=== PATIENT | male | born 1975 | race Caucasian/White ===

== ENCOUNTER 2016-05-10 20:49 | Emergency (ER) | payer OTHER ==
[~2016-05-10 20:49] MED LIST: ADVIL PM CAPLE1 EACH; ALLEGRA PO; APRESOLINE; DOXYCYCLINE PO; ENTEX LA T1 TAB.SR . PO; KEFLEX PO; LEXAPRO PO; OTC COLD MED; PHENERGAN PO; PHENERGAN25 MG PO; ROBITUSSIN ALL118 ML PO; SUDAFED30 M1 PO; VOLTAREN75 MG PO
== END 2016-05-10 21:18 | disposition home or self-care (01) ==
LOC: SED 20:49
DX: Z53.21 Procedure and treatment not carried out due to patient leaving prior to being seen by health care provider (principal)